=== PATIENT | female | born 1960 | race Caucasian/White ===

== ENCOUNTER 2017-04-24 06:16 | Day surgery (SDC) | payer OTHER ==
[2017-04-24] MEDS ORDERED: FENTAnyl 50 MCG/ML VIAL (08:18)
[2017-04-24] MEDS ORDERED: MIDAZOLAM 1 MG/ML 2 ML INJ ×2 (08:18)
[2017-04-24] MEDS ORDERED: LIDOCAINE 4% SOLUTION 50 ML BTL (08:59)
== END 2017-04-24 11:44 | disposition home or self-care (01) ==
LOC: GIL 06:16
DX: Z12.11 Encounter for screening for malignant neoplasm of colon (principal); K21.0 Gastro-esophageal reflux disease with esophagitis; K29.70 Gastritis, unspecified, without bleeding; I10 Essential (primary) hypertension
CPT/HCPCS: 43239; 88305